=== PATIENT | male | born 2000 | race Caucasian/White ===

== ENCOUNTER 2019-02-25 01:17 | Emergency (ER) | payer BC ==
[2019-02-25 01:27] VITALS: BP 138/79
--- NOTE | 2019-02-25 01:36 | ER Report ---
History and Physical Time Seen By MD: 01:23 Hx. of Stated Complaint: pt was longboarding. hit head on curb. lac to right forehead HPI/ROS CHIEF COMPLAINT: Laceration right eyebrow HISTORY OF PRESENT ILLNESS: This is a 18-year-old male. He fell while long boarding. His right eyebrow area on the curb. No loss of consciousness. He has pain over the laceration but no other headache. No dizziness. Normal vision. Up-to-date on immunizations. Allergies: Coded Allergies: No Known Drug Allergies (Unverified , 02/25/19) Reviewed Nurses Notes: Yes Constitutional Vital Sign - Last 24 Hours 02/25/19 01:27 Temp 98.0 Pulse 57 Resp 16 B/P (MAP) 138/79 Pulse Ox 96 O2 Delivery Room Air Physical Exam General Appearance: Alert, no acute distress.[ ] Eyes: Pupils are round, reactive to light, equal, extraocular movements intact, normal sclera. ENT: Normal oral mucosa. Neuro: Alert and oriented 4, no focal deficits. Musculoskeletal: No neck pain. Skin: 2 cm laceration lateral side of the right eyebrow. DIFFERENTIAL DIAGNOSIS: After history and physical exam differential diagnosis was considered for laceration from head injury, no sign of concussion or other neurologic Medical Decision Making ED Course/Re-evaluation ED Course Procedure: Laceration Repair Verbal consent from patient after discussing repair options, risks and benefits. Wound cleaned extensively with Hibiclens and saline. Anesthesia: 1% lidocaine with epinephrine and 0.5% bupivacaine. Location: Right eyebrow laterally. Length: 2 cm. Character: Linear. Wound repair: 4 interrupted 4-0 Ethilon sutures. The wound repair was simple and performed by myself. Wound care instructions discussed. Sutures need to be removed in 7 days. Decision to Disposition Date: Feb 25, 2019 Decision to Disposition Time: 02:06 Depart Departure Latest Vital Signs Vital Signs Date Time Temp Pulse Resp B/P (MAP) Pulse Ox O2 Delivery O2 Flow Rate FiO2 02/25/19 01:27 98.0 57 16 138/79 96 Room Air Impression: Primary Impression: Eyebrow laceration Condition: Improved Disposition: HOME OR SELF-CARE Patient Instructions: Laceration (ED) Additional Instructions: Wound Care: Wash the wound once a day with soap and water. Dry the wound and apply a small amount of antibiotic ointment with a clean dressing. If the dressing becomes wet or dirty, repeat cleaning and dressing as above. No soaking the wound; no swimming. Stitches need to be removed in 5-7 days. Pain Control: Use Tylenol or ibuprofen for pain. Using and ice pack can help reduce swelling. Problem Qualifiers Primary Impression: Eyebrow laceration Encounter type: initial encounter Laterality: right Qualified Codes: S01.111A - Laceration without foreign body of right eyelid and periocular area, initial encounter KURT CHAPA MD Feb 25, 2019 01:35
== END 2019-02-25 02:15 | disposition home or self-care (01) ==
LOC: ER 01:39
DX: S01.111A Laceration without foreign body of right eyelid and periocular area, initial encounter (principal); V00.131A Fall from skateboard, initial encounter
CPT/HCPCS: 99283